=== PATIENT | female | born 1980 | race Asian ===

== ENCOUNTER 2016-11-09 16:20 | Inpatient (IN) | payer SELFPAY ==
[~2016-11-09] VITALS: Ht 157 cm; Wt 74.8 kg
[2016-11-09] MEDS ORDERED: LACTATED RINGERS 1,000 ML IV SCH (16:58)
[2016-11-09] MEDS ORDERED: METHYLERGONOVINE 0.2 MG/ML AMP IM PRN (17:00)
[2016-11-09] MEDS ORDERED: CARBOPROST 250 MCG/ML AMP IM PRN (17:00)
[2016-11-09] MEDS ORDERED: AMPICILLIN 2,000 MG VIAL ONE ×3 (17:15→21:06)
[2016-11-09] MEDS ORDERED: BETAMETH ACET/BETAMETH NA PH 30 MG/5 ML VIAL IM ONE (17:15)
[2016-11-09] MEDS ORDERED: TERBUTALINE 2.5 MG TAB ONE ×2 (17:15→21:06)
[2016-11-09 17:32] LABS: BASOPHILS # (AUTO) 0.1 K/uL (0.00-0.22); BASOPHILS % (AUTO) 1.3 % (0.0-2.0); EOSINOPHILS # (AUTO) 0.2 K/uL (0-0.4); HEMATOCRIT 35.3 % (36-48); HEMOGLOBIN 11.8 g/dL (12.0-16.0); LYMPHOCYTES # (AUTO) 1.5 K/uL (2.5-16.5); LYMPHOCYTES % (AUTO) 15.7 % (20.5-51.1); MEAN CORPUSCULAR HEMOGLOBIN 32 pg (27-31); MEAN CORPUSCULAR HGB CONC 33 g/dL (33-37); MEAN CORPUSCULAR VOLUME 95 fL (80-94); MONOCYTES # (AUTO) 0.7 K/uL (0.8-1.0); MONOCYTES % (AUTO) 7.6 % (1.7-9.3); NEUTROPHILS # (AUTO) 7.2 K/uL (1.8-7.7); NEUTROPHILS % (AUTO) 73.4 % (42.2-75.2); PLATELET COUNT (AUTO) 254 K/uL (140-450); RED BLOOD CELL COUNT(AUTO) 3.73 MIL/uL (4.20-5.40); RED CELL DISTRIBUTION WIDTH 12.5 % (11.6-13.7); WHITE BLOOD COUNT (AUTO) 9.7 K/uL (4.8-10.8)
[2016-11-09 17:59] LABS: APPEARANCE,URINE CLEAR (CLEAR); BILIRUBIN,URINE NEGATIVE (NEGATIVE); BLOOD, URINE NEGATIVE (NEGATIVE); COLOR,URINE YELLOW (YELLOW); LEUKOCYTE ESTERASE ,URINE TRACE (NEGATIVE); NITRITE, URINE NEGATIVE (NEGATIVE); PH,URINE 7.5 (5.0-9.0); PROTEIN,URINE NEGATIVE (NEGATIVE); UGLUCOSE NEGATIVE (NEGATIVE); UROBILINOGEN,URINE 0.2 EU/dL (0.2 - 1)
[2016-11-09] MEDS ORDERED: CITRIC ACID/SODIUM CITRATE 30 ML UDC PO SCH (18:00)
[2016-11-09] MEDS ORDERED: TERBUTALINE 2.5 MG TAB PO SCH (18:00)
[2016-11-09 18:07] VITALS: BP 106/66
[2016-11-09] MEDS ORDERED: METHYLERGONOVINE 0.2 MG/ML AMP IM ONE (18:10)
[2016-11-09] MEDS ORDERED: CARBOPROST 250 MCG/ML AMP IM ONE (18:10)
[2016-11-09 18:11] LABS: BACTERIA,URINE 2+ /HPF (None Seen); RBC,URINE 0-5 /HPF (0-5); WBC,URINE 0-5 /HPF (0-5)
[2016-11-09] MEDS ORDERED: BETAMETH ACET/BETAMETH NA PH 30 MG/5 ML VIAL IM SCH (21:00)
[2016-11-09] MEDS: AMPICILLIN 2,000 MG in NACL 0.9% 100 ML IV SCH (21:07)
[2016-11-09] MEDS: TERBUTALINE 2.5 MG TAB PO SCH (21:07)
[2016-11-10] MEDS ORDERED: TERBUTALINE 2.5 MG TAB ONE ×2 (00:38→05:02)
[2016-11-10] MEDS ORDERED: AMPICILLIN 2,000 MG VIAL ONE ×2 (00:39→05:02)
[2016-11-10] MEDS: TERBUTALINE 2.5 MG TAB PO SCH ×2 (00:46→05:02)
[2016-11-10] MEDS: AMPICILLIN 2,000 MG in NACL 0.9% 100 ML IV SCH ×2 (00:46→05:03)
[2016-11-10] MEDS ORDERED: BETAMETH ACET/BETAMETH NA PH 30 MG/5 ML VIAL IM ONE (05:03)
[2016-11-10] MEDS ORDERED: MIDAZOLAM 2 MG/2 ML VIAL ONE (07:17)
[2016-11-10] MEDS ORDERED: MORPHINE PRES FREE 10 MG/10 ML AMP IV ONE (07:17)
[2016-11-10] MEDS ORDERED: OXYTOCIN 10 UNITS/ML VIAL ONE ×2 (07:19→07:30)
[2016-11-10] MEDS ORDERED: TRIAMCINOLONE 40 MG/ML 5ML VIAL ONE (07:19)
[2016-11-10] MEDS ORDERED: BUPIVACAINE-MPF 0.75% 10 ML VIAL INJ ONE (07:30)
[2016-11-10] MEDS ORDERED: ceFAZolin 1,000 MG VIAL ONE (07:31)
[2016-11-10] MEDS ORDERED: OXYTOCIN 20 UNITS/LR PREMIX 1,000 ML IV SCH (07:59)
[2016-11-10] MEDS ORDERED: diphenhydrAMINE 50 MG/ML VIAL IVP PRN ×2 (08:00)
[2016-11-10] MEDS ORDERED: MEPERIDINE 25 MG/ML SYR IVP PRN (08:00)
[2016-11-10] MEDS ORDERED: NALBUPHINE 10 MG/ML AMP IVP PRN (08:00)
[2016-11-10] MEDS ORDERED: ONDANSETRON 4 MG/2 ML VIAL IVP PRN ×2 (08:00)
[2016-11-10] MEDS ORDERED: HYDROmorphone 1 MG/ML AMP IVP PRN (08:00)
[2016-11-10] MEDS ORDERED: NALOXONE 0.4 MG/ML VIAL IVP PRN ×3 (08:00)
[2016-11-10] MEDS ORDERED: OXYTOCIN 20 UNITS/LR PREMIX 1,000 ML IV ONE (08:31)
[2016-11-10] MEDS ORDERED: ONDANSETRON 4 MG/2 ML VIAL ONE (08:31)
--- NOTE | 2016-11-10 09:58 | NUR ---
PATIENT HAS BEEN SCREENED AND CATEGORIZED LOW NUTRITION RISK. PATIENT WILL BE SEEN WITHIN 7 DAYS OF ADMISSION. 11/16/[address]
[2016-11-10] MEDS ORDERED: oxyCODONE/APAP 5/325 MG 1 TAB TAB PO PRN (11:35)
[2016-11-10] MEDS ORDERED: HYDROcodone/APAP 5/325 MG 1 TAB TAB PO PRN (11:35)
[2016-11-10] MEDS ORDERED: IBUPROFEN 800 MG TAB PO PRN (11:35)
[2016-11-10] MEDS ORDERED: MEASLES, MUMPS, AND RUBELLA 1 VIAL SQVAC PRN (11:35)
[2016-11-10] MEDS: KETOROLAC 30 MG/ML VIAL IM/IVP SCH ×2 (12:00→18:00)
[2016-11-10] MEDS: OXYTOCIN 20 UNITS/LR PREMIX 1,000 ML IV SCH ×2 (15:09→23:20)
[2016-11-10] MEDS ORDERED: TEMAZEPAM 15 MG CAP PO PRN (21:00)
[2016-11-10] MEDS: DOCUSATE SOD/SENNA 50/8.6 MG 1 TAB PO SCH (21:00)
[2016-11-11] MEDS: KETOROLAC 30 MG/ML VIAL IM/IVP SCH
[2016-11-11 05:45] LABS: HEMATOCRIT 28.3 % (36-48); HEMOGLOBIN 9.5 g/dL (12.0-16.0); MEAN CORPUSCULAR HEMOGLOBIN 32 pg (27-31); MEAN CORPUSCULAR HGB CONC 34 g/dL (33-37); MEAN CORPUSCULAR VOLUME 95 fL (80-94); PLATELET COUNT (AUTO) 223 K/uL (140-450); RED BLOOD CELL COUNT(AUTO) 2.99 MIL/uL (4.20-5.40); RED CELL DISTRIBUTION WIDTH 12.7 % (11.6-13.7); WHITE BLOOD COUNT (AUTO) 25.1 K/uL (4.8-10.8)
[2016-11-11 06:32] LABS: BAND % (MANUAL) 5 % (0-8); NEUTROPHILS % (MANUAL) 87 (43-65)
[2016-11-11 06:33] LABS: LYMPHOCYTES % (MANUAL) 4 % (20-46); MONOCYTES % (MANUAL) 4 % (5-12)
[2016-11-11] MEDS: SIMETHICONE 80 MG TAB.CHEW PO PRN ×2 (08:41→18:27)
[2016-11-11] MEDS ORDERED: SODIUM PHOSPHATE 118 ML ENEM RC SCH (09:00)
[2016-11-11] MEDS: DOCUSATE SOD/SENNA 50/8.6 MG 1 TAB PO SCH (22:11)
[2016-11-12] MEDS: DOCUSATE SOD/SENNA 50/8.6 MG 1 TAB PO SCH (21:07)
== END 2016-11-14 09:33 | disposition home or self-care (01) | DRG 766 ==
LOC: MLD 16:20 → MFCC 11-10 09:25
PROVIDERS: ADMIT Obstetrics & Gynecology; ATTEND Obstetrics & Gynecology
PROC: 10D00Z1 Extraction of Products of Conception, Low, Open Approach (ICD-10-PCS; principal; 2016-11-10 07:30)
DX: O34.211 Maternal care for low transverse scar from previous cesarean delivery (principal); O42.913 Preterm premature rupture of membranes, unspecified as to length of time between rupture and onset of labor, third trimester; O99.824 Streptococcus B carrier state complicating childbirth; Z37.0 Single live birth; O09.523 Supervision of elderly multigravida, third trimester; Z3A.35 35 weeks gestation of pregnancy; Z28.21 Immunization not carried out because of patient refusal
CPT/HCPCS: 36415; 81001; 85025; 86592; 86762; 86886; 86900; 86901; 87086; 87340; 87653-90; 90707; J0290; J0690; J0702; J1200; J2250; J2270; J2405; J2590; J3301; J3490; J7060; J7120